=== PATIENT | female | born 1955 | race Caucasian/White ===

== ENCOUNTER → 2017-12-26 | Outpatient (CLI) | payer OTHER ==
--- NOTE | 2017-12-26 19:46 | MR ---
EXAMINATION TYPE: MR brain and iac wo/w con DATE OF EXAM: 12/26/2017 COMPARISON: NONE HISTORY: Tinnitus, bilateral / Vertigo TECHNIQUE: Multiplanar, multisequence images of the brain and brainstem is performed without and with IV contras t, utilizing 7 mL intravenous Gadavist . FINDINGS: Diffusion weighted images demonstrate no evidence of a recent infarct or other diffusion ab normality. There is no extra-axial fluid collection or significant white matter signal abnormality. The ventricular system and cisternal spaces are normal in size and appearance. The brain volume is age appropriate. Midline structures demonstrate normal morphology. There is a small 6 mm pineal gland cyst abutting th e superior tectum. No cerebral aqueduct obstruction. The craniocervical junction appears within norm al limits. The dural venous sinuses appear patent. Mild mucosal thickening is seen within the ethmoid sinuses. The remaining visualized sinuses are clear and the globes are intact. Major intracranial fl ow voids are maintained. There is near mild bilateral enhancement along the path of the 7th or 8th cranial nerves seen on larg e field of view T1 postcontrast axial image 7. This is not redemonstrated on the small field of view in the relate to the phase of contrast as there is opacification of the basilar artery on the large f [id number]. However this finding is redemonstrated on coronal image 9 of the T1 postcontrast nonfat sat images. Enhancement again is linear without nodularity or focal mass and is contained to the ext racanalicular portion of the nerve courses. No other abnormal intracranial enhancement is seen. No ab normal enhancement or mass of the internal auditory canals. No widening of the porus acusticus. No ce rebellar pontine angle masses seen. IMPRESSION: 1. Bilateral mild enhancement along the extra canalicular portions of the 7th and 8th cranial nerves without focal mass. Findings may relate to neuritis and given the bilaterality neoplasm is unlikely. No evidence of schwannoma. Infectious, inflammatory, granulomatous, and demyelinating etiologies shou ld be considered. 2. No evidence of intracranial mass, abnormal white matter disease, or infarct. 3. Mild ethmoid paranasal sinus disease. 4. 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 Aqueduct appears patent.
== END | disposition home or self-care (01) ==
LOC: RADMRIMAIN 12:16
PROVIDERS: ATTEND Family Medicine
DX: E34.8 Other specified endocrine disorders (principal)
CPT/HCPCS: 70553; A9581

== ENCOUNTER → 2018-01-04 | Outpatient (CLI) | payer OTHER ==
--- NOTE | 2018-01-04 10:14 | MR ---
EXAMINATION TYPE: MR cervical spine wo con DATE OF EXAM: 01/04/2018 COMPARISON: NONE HISTORY: Vertigo TECHNIQUE: Multiplanar, multisequence images of the cervical spine were acquired. C2-C3: No evidence for degenerative disc disease. No disc bulge/herniation or protrusion. No Canal stenosis. Foramina are patent bilaterally. C3-C4: Mild loss of disc space and signal with uncovertebral joint hypertrophy greater on the left. N o Canal stenosis. No foraminal encroachment. C4-C5: Mild to moderate degenerative disc disease with posterior spondylosis. There is uncovertebral joint greater on the left with ligamentum flavum hypertrophy. There is mild left-sided foraminal encr oachment. C5-C6: Moderate degenerative disc disease with posterior spondylosis and uncovertebral joint hypertro phy. Findings are greater on the left with mild left-sided foraminal encroachment. Ligamentum flavum hypertrophy. No disc herniation or canal stenosis. C6-C7: Moderate degenerative disc disease. There is posterior spondylosis and concentric disc bulging but no canal stenosis or focal herniation. Mild bilateral foraminal encroachment C7-T1: No evidence for degenerative disc disease. No disc bulge/herniation or protrusion. No Canal stenosis. Foramina are patent bilaterally. Cervical segments are intact. There is normal alignment. Cervical spinal cord is of normal signal. Craniovertebral junction relationships are within normal limits. IMPRESSION: 1. Multilevel degenerative disc disease and posterior spondylosis with uncovertebral joint hypertroph y result in multilevel mild foraminal encroachment but no canal stenosis or focal herniation. 2. At T2-T3 there is a sagittal disc bulge which is not included on the axial images.
--- NOTE | 2018-01-04 10:19 | MR ---
EXAMINATION TYPE: MR angio neck wo/w con DATE OF EXAM: 01/04/2018 COMPARISON: NONE HISTORY: Vertigo CONTRAST: Standard multiplanar, multisequence MRI departmental protocol utilizing 7.5 mL intravenous Gadavist g adolinium contrast. FINDINGS: Exam is limited by motion artifact. Grossly the aortic arch appears to be of normal caliber . Origin of great vessels are patent. Slight dominance of the left vertebral artery. Vertebral basilar system as visualized appear normal c aliber and patent. There is very mild atherosclerotic plaque involving the carotid bulb bilaterally greater on the right with no significant hemodynamic stenosis. Common carotid arteries appear to be patent as visualized with some limitation proximally due to severe motion artifact. There is suggestion of a stenosis at the origin of the right external carotid artery. This likely miranda sures 50% or less. IMPRESSION: No significant hemodynamic stenosis involving the carotid bifurcation. Carotid arteries appear to dem onstrate normal course and caliber.
== END | disposition home or self-care (01) ==
LOC: RADMRIMAIN 07:48
PROVIDERS: ATTEND Psychiatry & Neurology Neurology
DX: M50.121 Cervical disc disorder at C4-C5 level with radiculopathy (principal); M47.22 Other spondylosis with radiculopathy, cervical region; H93.A9 Pulsatile tinnitus, unspecified ear; H81.43 Vertigo of central origin, bilateral; Z86.73 Personal history of transient ischemic attack (TIA), and cerebral infarction without residual deficits
CPT/HCPCS: 70549; 72141; A9581

== ENCOUNTER → 2018-01-23 | Outpatient (CLI) | payer OTHER ==
--- NOTE | 2018-01-23 09:37 | MR ---
EXAMINATION TYPE: MR angio head wo con DATE OF EXAM: 01/23/2018 COMPARISON: MRI brain December 26, 2017 HISTORY: Vertigo TECHNIQUE: Time of flight images focusing on the Sam[place] of Prasad were performed without contrast.. 2-D and 3-D postprocessing imaging is performed on MRI scanner. FINDINGS: There is dominant left vertebral artery is slightly tortuous course to distal right vertebr al artery. Vertebral arteries are patent to basilar junction. There is no significant focal stenosis or aneurysmal change in the posterior circulation. There is patent right posterior communicating ang ry filling right P2 segment as there is hypoplastic right P1 segment noted. There is hypoplastic left posterior communicating artery identified. Images of the anterior circulation show patent small caliber anterior communicating artery. No signif icant focal stenosis or aneurysmal change is seen. IMPRESSION: No significant focal stenosis or aneurysmal change at the level of the [place] of Prasad.
== END | disposition home or self-care (01) ==
LOC: RADMRIMAIN 08:07
PROVIDERS: ATTEND Psychiatry & Neurology Neurology
DX: H93.A9 Pulsatile tinnitus, unspecified ear (principal)
CPT/HCPCS: 70544

== ENCOUNTER → 2018-02-03 | Outpatient (CLI) | payer OTHER ==
--- NOTE | 2018-02-03 09:45 | US ---
EXAMINATION TYPE: US gallbladder DATE OF EXAM: 02/03/2018 COMPARISON: US 07/10/17 and 06/14/2015 CLINICAL HISTORY: K82.4 Cholesterolosis of gallbladder. EXAM MEASUREMENTS: Liver Length: 13.4 cm Gallbladder Wall: 0.2 cm CBD: 0.3 cm Right Kidney: 10.2 x 4.4 x 4.3 cm Pancreas: Partially Obscured by bowel gas Liver: wnl, small echogenic area seen again in right lobe = 1.0 x 1.1 x 0.9 cm (previously measured 1.2 x 1.0 x 1.2 cm on the exam of 07/10/2017 and was also seen in 2014 measuring 1.1 cm suggesting a benign etiology. Gallbladder: Polyp seen again adhering to posterior wall = 0.5 cm (previously measured 7 mm). There is similar in size given differences in measurement technique. No interval growth . Evidence for sonographic Fonseca's sign: No CBD: wnl Right Kidney: wnl IMPRESSION: 1. Stable hyperechoic solitary hepatic lesion in comparison to exam of 2014 again suggesting a benign hemangioma. 2. No interval growth of the previously seen gallbladder polyp on the exam of 07/10/2017. Annual surv eillance is recommended for lesions of the size.
== END | disposition home or self-care (01) ==
LOC: RADUSWWP 08:34
PROVIDERS: ATTEND Family Medicine
DX: C4A.31 Merkel cell carcinoma of nose (principal); K76.9 Liver disease, unspecified; K82.4 Cholesterolosis of gallbladder
CPT/HCPCS: 76705

== ENCOUNTER → 2018-07-11 | Outpatient (CLI) | payer OTHER ==
--- NOTE | 2018-07-14 11:23 | MM ---
Reason for exam: screening (asymptomatic). Last mammogram was performed 1 year ago. History: Patient is postmenopausal. Physical Findings: A clinical breast exam by your physician is recommended on an annual basis and results should be correlated with mammographic findings. MG 3D Screening Mammo W/Cad Bilateral CC and MLO view(s) were taken. Prior study comparison: July 10, 2017, bilateral MG 3d screening mammo w/cad. June 18, 2016, bilateral MG 3d screening mammo w/cad. The breast tissue is heterogeneously dense. This may lower the sensitivity of mammography. There are benign appearing round calcifications bilaterally greaster in the left breast. There is no discrete abnormality. ASSESSMENT: Benign, BI-RAD 2 RECOMMENDATION: Routine screening mammogram of both breasts in 1 year.
== END | disposition home or self-care (01) ==
LOC: RADMAMWWP 09:27
PROVIDERS: ATTEND Family Medicine
DX: Z12.31 Encounter for screening mammogram for malignant neoplasm of breast (principal)
CPT/HCPCS: 77063; 77067

== ENCOUNTER → 2019-03-06 | Outpatient (CLI) | payer OTHER ==
--- NOTE | 2019-03-06 08:32 | US ---
EXAMINATION TYPE: US abdomen complete DATE OF EXAM: 03/06/2019 COMPARISON: Ultrasounds dating back to 2014 CLINICAL HISTORY: K82.6 OTHER SPECIFIED DISEASE OF GALLBLADDER. follow up liver and GB. NPO. EXAM MEASUREMENTS: Liver Length: 12.4 cm Gallbladder Wall: 0.2 cm CBD: 0.3 cm Spleen: 7.7 cm Right Kidney: 9.2 x 4.4 x 4.5 cm Left Kidney: 9.3 x 4.5 x 4.8 cm Pancreas: Tail obscured by overlying bowel gas Liver: right lobe posterior echogenic lesion= 1.0 x 1.0 x 1.0 cm. On the exam of 2014 this measured 1.1 cm and on the exam of 2016 this measured up to 1.2 cm. On the exam of 2018 is measured up to 1.2 cm. Differences in obliquity and technique account for the changes in size overall however there is n o interval growth and this is overall most compatible with a benign hemangioma. Gallbladder: echogenic focus adjacent to wall - 0.4 cm . This represents a polyp previously seen miranda suring 5 mm on the exam of 2018 and 7 mm prior to that. Again this appears stable given differences i n technique. Evidence for sonographic Fonseca's sign: neg CBD: wnl Spleen: wnl Right Kidney: wnl Left Kidney: wnl Upper IVC: wnl Abd Aorta: No AAA visualized The intrahepatic portion of the IVC and proximal abdominal aorta are within normal limits. There is no evidence of cholelithiasis. Common bile duct is unremarkable. The visualized portions of the sanchez creas are homogenous. The spleen is unremarkable. Kidneys are symmetric and free of hydronephrosis. No renal lesions are seen. IMPRESSION: 1. Stable hyperechoic solitary hepatic lesion in comparison to exams dating back to 2014 most compati ble with a benign hemangioma. No new interval growth or new hepatic lesion seen. 2. Stable subcentimeter gallbladder polyp back to 2017. This is also highly favored to be benign alth ough a annual surveillance is recommended for polyps.
== END | disposition home or self-care (01) ==
LOC: RADUSWWP 07:25
PROVIDERS: ATTEND Family Medicine
DX: K76.9 Liver disease, unspecified (principal); K82.4 Cholesterolosis of gallbladder
CPT/HCPCS: 76700

== ENCOUNTER → 2020-02-12 | Outpatient (CLI) | payer OTHER ==
--- NOTE | 2020-02-12 09:02 | US ---
EXAMINATION TYPE: US abdomen complete DATE OF EXAM: 02/12/2020 COMPARISON: NONE CLINICAL HISTORY: Z86.2 Personal hx of blood disorder, E78.89. Bloating, nausea, history of blood dis order EXAM MEASUREMENTS: Liver Length: 13.3 cm Gallbladder Wall: 0.3 cm CBD: 0.4 cm Spleen: 8.1 cm Right Kidney: 10.1 x 4.1 x 5.2 cm Left Kidney: 9.6 x 5.4 x 3.9 cm Technical limitations due to large amount of overlying bowel content Pancreas: Tail obscured by overlying bowel gas Liver: hyperechoic area = 1.2 x 0.9 x 1.0cm Gallbladder: non-mobile echogenic area = 0.4cm, polyp Evidence for sonographic Fonseca's sign: no CBD: limited evaluation Spleen: appears wnl Right Kidney: no evidence of hydronephrosis Left Kidney: no evidence of hydronephrosis Upper IVC: wnl Abd Aorta: wnl IMPRESSION: 1. Small hyperechoic area within the liver could be a small hemangioma. Follow up recommended. 2. Cholelithiasis versus polyp
== END | disposition home or self-care (01) ==
LOC: RADUSWWP 08:05
PROVIDERS: ATTEND Family Medicine
DX: K76.89 Other specified diseases of liver (principal); Z86.2 Personal history of diseases of the blood and blood-forming organs and certain disorders involving the immune mechanism
CPT/HCPCS: 76700

== ENCOUNTER → 2021-02-03 | Outpatient (CLI) | payer OTHER | END | disposition home or self-care (01) | DX: H93.3X9 Disorders of unspecified acoustic nerve (principal) ==

== ENCOUNTER → 2024-03-10 | Outpatient (CLI) | payer MEDICARE | END | disposition home or self-care (01) | LOC: LABPRL 07:58 | PROVIDERS: ATTEND Family Medicine | DX: Z00.00 Encounter for general adult medical examination without abnormal findings (principal) | CPT/HCPCS: 80053; 80061; 83036; 84443; 85025 ==